=== PATIENT | female | born 1980 | race Caucasian/White ===

== ENCOUNTER 2019-03-07 08:32 | Observation (INO) | payer MEDICAID ==
[~2019-03-07] VITALS: Ht 152.4 cm; Wt 63.5 kg
[2019-03-07] MEDS ORDERED: PNV11TAB MT (10:15)
== END 2019-03-07 10:00 | disposition home or self-care (01) ==
LOC: 8 EST LDRP 08:32
PROVIDERS: ADMIT Obstetrics & Gynecology; ATTEND Obstetrics & Gynecology
DX: Z34.81 Encounter for supervision of other normal pregnancy, first trimester (principal); Z3A.10 10 weeks gestation of pregnancy
CPT/HCPCS: 99281; G0378

== ENCOUNTER 2019-03-11 14:10 | Observation (INO) | payer MEDICAID ==
[~2019-03-11 14:10] MED LIST: PNV11TAB MT
== END 2019-03-11 16:30 | disposition home or self-care (01) ==
LOC: 8 EST LDRP 14:10
PROVIDERS: ADMIT Obstetrics & Gynecology; ATTEND Obstetrics & Gynecology
DX: O62.9 Abnormality of forces of labor, unspecified (principal); Z3A.39 39 weeks gestation of pregnancy
CPT/HCPCS: 99281; G0378